=== PATIENT | male | born 1990 | race Caucasian/White ===

== ENCOUNTER 2017-07-16 14:08 | Inpatient (IN) | payer MEDICAID, OTHER ==
[~2017-07-16] VITALS: Ht 177.8 cm; Wt 65.8 kg
[2017-07-16] MEDS ORDERED: BUPRENORPHINE HCL 2 MG TAB.SUBL SL PRN (16:30)
[2017-07-16] MEDS ORDERED: DICYCLOMINE HCL 20 MG TABLET PO PRN (16:30)
[2017-07-16] MEDS ORDERED: ONDANSETRON ODT 4 MG TAB.RAPDIS SL PRN (16:30)
[2017-07-16] MEDS ORDERED: THIAMINE HCL 200 MG/2 ML VIAL IM ONE (16:30)
[2017-07-16] MEDS ORDERED: MAG HYDROX/AL HYDROX/SIMETH 30 ML LIQUID UDC PO PRN (16:30)
[2017-07-16] MEDS ORDERED: ONDANSETRON 4 MG/2 ML VIAL IM PRN (16:30)
[2017-07-16] MEDS ORDERED: LORAZEPAM 2 MG/1 ML VIAL IM PRN (16:30)
[2017-07-16] MEDS ORDERED: MIRALAX 17 GM POWD.PACK PO PRN (16:30)
[2017-07-16] MEDS ORDERED: diphenhydrAMINE 50 MG CAPSULE PO PRN (16:30)
[2017-07-16] MEDS ORDERED: CLONIDINE HCL 0.1 MG TABLET PO PRN (16:30)
[2017-07-16] MEDS ORDERED: MAGNESIUM HYDROXIDE 30 ML LIQUID UDC PO PRN (16:30)
[2017-07-16] MEDS ORDERED: LOPERAMIDE HCL 2 MG CAPSULE PO PRN ×2 (16:30)
[2017-07-16] MEDS ORDERED: LORAZEPAM 1 MG TABLET PO PRN ×2 (16:30)
[2017-07-16 18:16] LABS: BASOPHILS # (AUTO) 0.1 K/uL (0.0-8.0); EOSINOPHILS # (AUTO) 0.3 K/uL (0.0-0.7); HEMATOCRIT 47.8 % (36.7-47.1); HEMOGLOBIN 16.6 g/dL (12.5-16.3); LYMPHOCYTES # (AUTO) 2.9 K/uL (20.0-40.0); LYMPHOCYTES % (AUTO) 40.1 % (20.5-51.5); MEAN CORPUSCULAR HEMOGLOBIN 32.6 uug (23.8-33.4); MEAN CORPUSCULAR HGB CONC 35 g/dL (32.5-36.3); MEAN CORPUSCULAR VOLUME 94.2 fL (73.0-96.2); MONOCYTES # (AUTO) 0.7 K/uL (2.0-10.0); MONOCYTES % (AUTO) 9.8 % (0.0-11.0); NEUTROPHILS # (AUTO) 3.3 K/uL (1.8-8.9); NEUTROPHILS % (AUTO) 45.1 % (38.5-71.5); PLATELET COUNT (AUTO) 236 K/uL (152-348); RED BLOOD CELL COUNT(AUTO) 5.08 MIL/uL (4.06-5.63); WHITE BLOOD COUNT (AUTO) 7.3 K/uL (3.6-10.2)
[2017-07-16] MEDS ORDERED: FLUT1DIS28 INH (18:31)
[2017-07-16] MEDS ORDERED: ALBU18HF2 INH (18:31)
[2017-07-16 18:33] LABS: ALANINE AMINOTRANSFERASE 26 U/L (16-63); ALKALINE PHOSPHATASE 82 U/L (50-136); ASPARTATE AMINOTRANSFERASE 21 U/L (15-37); BILIRUBIN,TOTAL 0.3 mg/dL (0.2-1.0); CARBON DIOXIDE 28 mmol/L (21-32); CHLORIDE 104 mmol/L (98-107); GLUCOSE 102 mg/dL (74-106); MAGNESIUM 1.6 mg/dL (1.8-2.4); POTASSIUM 3.8 mmol/L (3.5-5.1); TOTAL PROTEIN, SERUM 7.6 g/dL (6.4-8.2); UREA NITROGEN, BLOOD 15 mg/dL (7-18)
[2017-07-16 18:34] LABS: ETHANOL < 3 MG/DL (0-0)
[2017-07-16 18:43] LABS: THYROID STIMULATING HORMONE 3.616 mIU/mL (0.358-3.740)
[2017-07-16 19:28] LABS: *AMPHETAMINE, URINE NEGATIVE (NEGATIVE); *BARBITURATE, URINE NEGATIVE (NEGATIVE); *CANNABINOID, URINE NEGATIVE (NEGATIVE); *COCCAINE, URINE NEGATIVE (NEGATIVE); *OPIATE, URINE POSITIVE (NEGATIVE); *PHENCYCLIDINE SCREEN,URINE NEGATIVE (NEGATIVE)
[2017-07-16 20:00] VITALS: BP 115/78
[2017-07-16] MEDS ORDERED: MAGNESIUM OXIDE 400 MG TABLET PO ONE (20:00)
[2017-07-16] MEDS: ALBUTEROL INH PRN (20:40)
[2017-07-16] MEDS: METHOCARBAMOL 750 MG TABLET PO PRN (20:50)
[2017-07-16] MEDS: GABAPENTIN 300 MG CAPSULE PO SCH (20:50)
[2017-07-16] MEDS: ADVAIR INH SCH (20:53)
[2017-07-16] MEDS ORDERED: LORAZEPAM 1 MG TABLET PO SCH (21:00)
[2017-07-17] VITALS: BP 125/78
[2017-07-17 04:00] VITALS: BP 128/71
[2017-07-17 08:00] VITALS: BP 117/74
[2017-07-17] MEDS: THIAMINE HCL 100 MG TABLET PO SCH (08:40)
[2017-07-17] MEDS: GABAPENTIN 300 MG CAPSULE PO SCH ×2 (08:40→21:34)
[2017-07-17] MEDS: LORAZEPAM 1 MG TABLET PO SCH ×3 (08:40→21:34)
[2017-07-17] MEDS: FOLIC ACID 1 MG TABLET PO SCH (08:41)
[2017-07-17] MEDS: MULTIVITAMINS,THERAPEUTIC TABLET PO SCH (08:41)
[2017-07-17] MEDS: BUPRENORPHINE HCL 2 MG TAB.SUBL SL SCH ×4 (08:43→21:34)
[2017-07-17] MEDS: ADVAIR INH SCH ×2 (08:45→21:35)
[2017-07-17] MEDS ORDERED: TUBERCULIN,PURIF.PROT.DERIV. 5 TU/0.1 ML TEST ID ONE (09:00)
[2017-07-17] MEDS ORDERED: TRAZODONE 50 MG TABLET PO PRN (09:30)
[2017-07-17 12:00] VITALS: BP 140/86
[2017-07-17] MEDS: METHOCARBAMOL 750 MG TABLET PO PRN (13:37)
[2017-07-17] MEDS: IBUPROFEN 600 MG TABLET PO PRN ×2 (14:25→22:40)
[2017-07-17 16:00] VITALS: BP 128/77
[2017-07-17 20:29] VITALS: BP 131/84
[2017-07-17] MEDS: ALBUTEROL INH PRN (22:16)
[2017-07-18] VITALS (7 sets, daily range): BP systolic 106–146; BP diastolic 60–86
[2017-07-18] MEDS ORDERED: BUPRENORPHINE HCL 2 MG TAB.SUBL SL SCH (09:00)
[2017-07-18] MEDS: ADVAIR INH SCH ×2 (09:04→22:14)
[2017-07-18] MEDS: GABAPENTIN 300 MG CAPSULE PO SCH ×2 (09:04→14:46)
[2017-07-18] MEDS: MULTIVITAMINS,THERAPEUTIC TABLET PO SCH (09:04)
[2017-07-18] MEDS: LORAZEPAM 1 MG TABLET PO SCH ×3 (09:04→22:15)
[2017-07-18] MEDS: FOLIC ACID 1 MG TABLET PO SCH (09:04)
[2017-07-18] MEDS: THIAMINE HCL 100 MG TABLET PO SCH (09:04)
[2017-07-18] MEDS: METHOCARBAMOL 750 MG TABLET PO PRN (09:15)
[2017-07-18] MEDS ORDERED: LORAZEPAM 1 MG TABLET PO PRN ×2 (10:45)
[2017-07-18] MEDS: IBUPROFEN 600 MG TABLET PO PRN ×2 (12:06→18:45)
[2017-07-18] MEDS: BUPRENORPHINE HCL 2 MG TAB.SUBL SL SCH ×2 (14:46→22:16)
[2017-07-18] MEDS ORDERED: GABAPENTIN 300 MG CAPSULE PO SCH (21:00)
[2017-07-18] MEDS ORDERED: TRAZODONE 50 MG TABLET PO PRN (21:30)
[2017-07-18] MEDS ORDERED: TRAZODONE 100 MG TABLET ONE (21:47)
[2017-07-18] MEDS: CLONIDINE HCL 0.1 MG TABLET PO SCH (22:15)
[2017-07-18] MEDS: TRAZODONE 100 MG TABLET PO PRN (22:19)
[2017-07-19 00:12] VITALS: BP 133/68
[2017-07-19 04:40] VITALS: BP 127/72
[2017-07-19 08:00] VITALS: BP 126/74
[2017-07-19 08:07] LABS: HEPATITIS B SURFACE AG Negative (Negative)
[2017-07-19] MEDS: FOLIC ACID 1 MG TABLET PO SCH (08:27)
[2017-07-19] MEDS: GABAPENTIN 300 MG CAPSULE PO SCH ×3 (08:27→21:27)
[2017-07-19] MEDS: MULTIVITAMINS,THERAPEUTIC TABLET PO SCH (08:27)
[2017-07-19] MEDS: BUPRENORPHINE HCL 2 MG TAB.SUBL SL SCH ×3 (08:27→21:28)
[2017-07-19] MEDS: THIAMINE HCL 100 MG TABLET PO SCH (08:27)
[2017-07-19] MEDS: LORAZEPAM 1 MG TABLET PO SCH ×2 (08:27→21:27)
[2017-07-19] MEDS: CLONIDINE HCL 0.1 MG TABLET PO SCH ×3 (08:27→21:27)
[2017-07-19] MEDS: IBUPROFEN 600 MG TABLET PO PRN ×3 (08:31→21:38)
[2017-07-19] MEDS: METHOCARBAMOL 750 MG TABLET PO PRN (08:31)
[2017-07-19] MEDS: ADVAIR INH SCH ×2 (08:33→21:28)
[2017-07-19 12:00] VITALS: BP 120/68
[2017-07-19] MEDS ORDERED: HYDROXYZINE PAMOATE 25 MG CAPSULE PO PRN (12:30)
[2017-07-19 16:00] VITALS: BP 117/75
[2017-07-19] MEDS: BENZOCAINE ORAL CARE 12 ML BOTTLE MM PRN ×2 (17:20→21:39)
[2017-07-19] MEDS: ACETAMINOPHEN 325 MG TABLET PO PRN (19:45)
[2017-07-19 20:00] VITALS: BP 139/83
[2017-07-19] MEDS: TRAZODONE 100 MG TABLET PO PRN (21:38)
[2017-07-20 08:00] VITALS: BP 103/63
[2017-07-20] MEDS: MULTIVITAMINS,THERAPEUTIC TABLET PO SCH (08:40)
[2017-07-20] MEDS: IBUPROFEN 600 MG TABLET PO PRN ×2 (08:40→21:03)
[2017-07-20] MEDS: CLONIDINE HCL 0.1 MG TABLET PO SCH ×3 (08:40→20:51)
[2017-07-20] MEDS: GABAPENTIN 300 MG CAPSULE PO SCH ×3 (08:40→20:51)
[2017-07-20] MEDS: FOLIC ACID 1 MG TABLET PO SCH (08:40)
[2017-07-20] MEDS: THIAMINE HCL 100 MG TABLET PO SCH (08:41)
[2017-07-20] MEDS: ADVAIR INH SCH ×2 (08:41→20:51)
[2017-07-20] MEDS ORDERED: LORAZEPAM 1 MG TABLET PO SCH (09:00)
[2017-07-20] MEDS ORDERED: BUPRENORPHINE HCL 2 MG TAB.SUBL SL SCH (09:00)
[2017-07-20 12:00] VITALS: BP 107/62
[2017-07-20] MEDS ORDERED: AMOXICILLIN TRIHYDRATE 500 MG CAPSULE PO SCH (13:00)
[2017-07-20] MEDS: ACETAMINOPHEN 325 MG TABLET PO PRN ×2 (13:57→21:03)
[2017-07-20 16:00] VITALS: BP 111/79
[2017-07-20] MEDS ORDERED: IBUP-1955 PO (16:35)
[2017-07-20] MEDS ORDERED: AMOX500C2 PO (16:35)
[2017-07-20] MEDS ORDERED: LACT1CAP57 PO (16:35)
[2017-07-20] MEDS ORDERED: HYDR-3895 PO (16:35)
[2017-07-20] MEDS ORDERED: TRAZ-147 PO (16:35)
[2017-07-20] MEDS ORDERED: GABA-534 PO (16:35)
[2017-07-20] MEDS ORDERED: DICY20TA28 PO (16:35)
[2017-07-20] MEDS ORDERED: METH-406 PO (16:35)
[2017-07-20] MEDS ORDERED: CLON0.1T14 PO (16:35)
[2017-07-20 20:00] VITALS: BP 109/64
[2017-07-20] MEDS: AMOXICILLIN TRIHYDRATE 500 MG CAPSULE PO SCH (20:51)
[2017-07-20] MEDS: LACTOBACILLUS RHAMNOSUS GG 1 EACH CAPSULE PO SCH (20:51)
[2017-07-20] MEDS: TRAZODONE 100 MG TABLET PO PRN (21:03)
[2017-07-21 08:00] VITALS: BP 115/73
[2017-07-21] MEDS: IBUPROFEN 600 MG TABLET PO PRN (08:10)
[2017-07-21] MEDS: FOLIC ACID 1 MG TABLET PO SCH (08:10)
[2017-07-21] MEDS: ADVAIR INH SCH (08:10)
[2017-07-21] MEDS: AMOXICILLIN TRIHYDRATE 500 MG CAPSULE PO SCH (08:10)
[2017-07-21 08:11] VITALS: BP 113/75
[2017-07-21] MEDS: CLONIDINE HCL 0.1 MG TABLET PO SCH (08:11)
[2017-07-21] MEDS: MULTIVITAMINS,THERAPEUTIC TABLET PO SCH (08:11)
[2017-07-21] MEDS: GABAPENTIN 300 MG CAPSULE PO SCH (08:11)
[2017-07-21] MEDS: THIAMINE HCL 100 MG TABLET PO SCH (08:11)
[2017-07-21] MEDS: LACTOBACILLUS RHAMNOSUS GG 1 EACH CAPSULE PO SCH (08:11)
== END 2017-07-21 09:40 | disposition home or self-care (01) | DRG 772 ==
LOC: SRC 15:53
PROVIDERS: ADMIT Internal Medicine; ATTEND Internal Medicine
PROC: HZ2ZZZZ Detoxification Services for Substance Abuse Treatment (ICD-10-PCS; principal; 2017-07-16)
PROC: HZ41ZZZ Group Counseling for Substance Abuse Treatment, Behavioral (ICD-10-PCS; 2017-07-17)
PROC: HZ31ZZZ Individual Counseling for Substance Abuse Treatment, Behavioral (ICD-10-PCS; 2017-07-18)
DX: F13.232 Sedative, hypnotic or anxiolytic dependence with withdrawal with perceptual disturbance (principal); P27.1 Bronchopulmonary dysplasia originating in the perinatal period; F41.1 Generalized anxiety disorder; F17.210 Nicotine dependence, cigarettes, uncomplicated; F11.23 Opioid dependence with withdrawal; Z81.1 Family history of alcohol abuse and dependence; Z80.9 Family history of malignant neoplasm, unspecified; Z82.61 Family history of arthritis; G47.00 Insomnia, unspecified; Z91.89 Other specified personal risk factors, not elsewhere classified; Z91.5 Personal history of self-harm; J45.20 Mild intermittent asthma, uncomplicated; E83.42 Hypomagnesemia; K08.89 Other specified disorders of teeth and supporting structures; F10.10 Alcohol abuse, uncomplicated; Y90.9 Presence of alcohol in blood, level not specified
CPT/HCPCS: 36415; 70030-TC; 80307; 80346; 80361; 83735; 84443; 85025; 86580; 86592; 86705; 86803; 87340; 87806; A4663; A9150; G0480; Q0163